=== PATIENT | male | born 1965 | race African-American/Black ===

== ENCOUNTER → 2016-09-15 | Outpatient (CLI) | payer OTHER ==
--- NOTE | 2016-09-15 10:34 | MR ---
EXAMINATION TYPE: MR lumbar spine wo con DATE OF EXAM: 09/15/2016 COMPARISON: 04/01/2010 HISTORY: Low Back Pain TECHNIQUE: T1 and T2 axial and sagittal images of the lumbar spine are submitted. Exam severely neri ited due to motion artifact. FINDINGS: There is no obvious abnormal signal seen within the visualized spinal cord or paraspinal so ft tissues. Exam significantly limited due to motion artifact. At L1-2 there is hypertrophic change of the facets but no disc herniation or canal stenosis. No maria teresa inal encroachment. At L2-3 there is marked facet arthropathy. No disc herniation or canal stenosis. I'll circumferential disc bulging with mild foraminal encroachment bilaterally. At L3-4 there is disc desiccation. There is ligamentum flavum and facet arthropathy and circumferenti al disc bulging with diminutive spinal canal. Mild bilateral foraminal encroachment. No Canal stenosi s. At L4-5 there is hypertrophic change of the facets with broad-based central disc bulging but no canal stenosis. Mild bilateral foraminal encroachment. Vertebral body hemangioma of L4 noted. At L5-S1 there is marked facet arthropathy. No canal stenosis or herniation. Neural foramina patent IMPRESSION: 1. Multilevel degenerative disc disease with multilevel disc bulging which appears fairly stable from the previous exam. 2. Multilevel mild foraminal encroachment secondary to hypertrophic facet arthropathy appears fairly stable.
== END | disposition home or self-care (01) ==
LOC: RADMRIMAIN 09:38
PROVIDERS: ATTEND Physician Assistant Medical
DX: M51.26 Other intervertebral disc displacement, lumbar region (principal); M51.36 Other intervertebral disc degeneration, lumbar region; M46.86 Other specified inflammatory spondylopathies, lumbar region
CPT/HCPCS: 72148

== ENCOUNTER → 2018-01-08 | Outpatient (CLI) | payer OTHER ==
--- NOTE | 2018-01-08 13:28 | MR ---
EXAMINATION TYPE: MR lumbar spine wo con DATE OF EXAM: 01/08/2018 1:04 PM COMPARISON: 09/15/2016 HISTORY: Low back pain Multiplanar, MultiSpin echo imaging of the lumbar spine was performed. L1-L2: Normal disc appearance without desiccation. No herniation, protrusion or disc bulging. No ca nal stenosis is present. Foramina are patent bilaterally. L2-L3: Mild disc desiccation. Broad-based posterior disc bulge effaces the ventral thecal sac. There is constriction of the thecal sac compatible with mild central stenosis. Bilateral foramina are paten t. No evidence of herniation. L3-L4: Mild disc desiccation. Broad-based posterior disc bulge effaces the ventral thecal sac. There is constriction of the thecal sac compatible with mild central stenosis. Bilateral foramina are paten t. No evidence of herniation. L4-L5: Mild disc desiccation. Broad-based posterior disc bulge effaces the ventral thecal sac. There is constriction of the thecal sac compatible with mild central stenosis. Bilateral foramina are paten t. Small right paracentral disc protrusion is difficult to exclude. Suspect right lateral recess sten osis. Mild right-sided foraminal encroachment. L5-S1: Normal disc appearance without desiccation. No herniation, protrusion or disc bulging. No ca nal stenosis is present. Foramina are patent bilaterally. Lumbar segments are intact. No paraspinal masses are identified. Conus medullaris has a normal appe arance. IMPRESSION: 1. Degenerative disc disease as discussed. 2. Mild central stenosis at L2-3 and L3-4. 3. Right paracentral disc protrusion suspected at L4-5 with right lateral recess stenosis and right f oraminal encroachment.
== END | disposition home or self-care (01) ==
LOC: RADMRIMAIN 12:28
PROVIDERS: ATTEND Psychiatry & Neurology Neurology
DX: M48.061 Spinal stenosis, lumbar region without neurogenic claudication (principal); M51.36 Other intervertebral disc degeneration, lumbar region
CPT/HCPCS: 72148

== ENCOUNTER 2018-12-01 07:30 | Day surgery (SDC) | payer OTHER ==
[2018-11-30 09:32] VITALS: BMI 44.6
[~2018-12-01 07:30] MED LIST: LACTATED RINGERS 1,000 ML IV SCH
[2018-12-01 07:42] VITALS: RESP 18; TEMP 97.9
[2018-12-01] MEDS ORDERED: LACTATED RINGERS 1,000 ML IV ONE ×3 (07:45)
[2018-12-01] MEDS ORDERED: MIDAZOLAM 2 MG/2 ML VIAL ONE (07:57)
[2018-12-01] MEDS ORDERED: PROPOFOL 10 MG/ML 20 ML VIAL IV ONE (07:57)
[2018-12-01] MEDS ORDERED: fentaNYL (PF) 50 MCG/ML 2 ML AMP ONE (07:57)
[2018-12-01] MEDS ORDERED: LIDOCAINE 1% INJ 10MG/ML (20 ML MDV) ONE (07:57)
--- NOTE | 2018-12-01 08:42 | P.PCN ---
Date of Procedure: 12/01/18 Procedure(s) Performed: Brief history: Patient is a pleasant 52-year-old pleasant -Citizen Of [place] male scheduled for an elective upper endoscopy as well as colonoscopy as a part of evaluation of abdominal pain, intermittent nausea vomiting and screening for colorectal neoplasia. Procedure performed: Esophagogastroduodenoscopy with biopsy Colonoscopy with biopsy Preoperative diagnosis: Abdominal pain/intermittent nausea vomiting Screening for colon cancer Anesthesia: MAC Procedure: After informed consent was obtained from the patient was brought into the endoscopy unit and IV sedation was administered by anesthesia under continuous monitoring. Initially upper endoscopy was done. The Olympus GF 160 video endoscope was inserted inserted into the mouth and esophagus intubated without any difficulty and was gradually advanced into the stomach and duodenum and carefully examined. The bulb and second part of the duodenum appeared normal. The scope was then withdrawn into the stomach adequately insufflated with air and upon careful examination the antrum had mild gastritis and biopsies were done from this area. The body, cardia and fundus appeared normal. The scope was then withdrawn into the esophagus. The GE junction was located at 40 cm to the incisors. there was small sliding-type well hernia noted. The GE junction appeared regular with no erythema erosions or ulcerations. Rest of the esophagus appeared normal. Patient tolerated the procedure well. At this time the patient continued to remain sedation. Initial digital rectal examination was normal. Olympus CF 160 video colonoscope was then inserted into the rectum and gradually advanced to the cecum without any difficulty. Careful examination was performed as the scope was gradually being withdrawn. The prep was excellent. The cecum, ascending colon, transverse colon, descending colon, sigmoid colon and rectum appeared normal. There was a 5 mm sessile polyp noted in the sigmoid colon that was removed by cold biopsy. Retroflexion was performed in the rectum and no lesions were noted. Patient tolerated the procedure well. Impression: 1. Upper endoscopy revealed mild antral gastritis and small hiatal hernia 2. Colonoscopy revealed 5 mm; polyp status post removal by cold biopsy Recommendations: Findings of this examination were discussed with the patient as well as her family. She was advised to follow with the biopsy results. If the biopsy shows an adenoma, she can have a repeat colonoscopy in 5 years.
[2018-12-01 08:43] VITALS: BP 112/76; PULSE 70
== END 2018-12-01 09:30 | disposition home or self-care (01) ==
LOC: ORWHC2ENDO 07:30
PROVIDERS: ATTEND Internal Medicine Gastroenterology
DX: K29.50 Unspecified chronic gastritis without bleeding (principal); K63.5 Polyp of colon; K44.9 Diaphragmatic hernia without obstruction or gangrene; Z88.6 Allergy status to analgesic agent; G47.33 Obstructive sleep apnea (adult) (pediatric); F43.10 Post-traumatic stress disorder, unspecified; K21.9 Gastro-esophageal reflux disease without esophagitis; K58.9 Irritable bowel syndrome, unspecified; Z79.891 Long term (current) use of opiate analgesic; Z79.899 Other long term (current) drug therapy
CPT/HCPCS: 88305; 45380; 43239; J2250; J2001; J3010; J2704

== ENCOUNTER → 2020-06-27 | Outpatient (CLI) | payer OTHER ==
--- NOTE | 2020-06-28 02:41 | MR ---
EXAMINATION TYPE: MR lumbar spine wo con DATE OF EXAM: 06/27/2020 COMPARISON: 01/08/2018 HISTORY: Chronic LBP, BLE radiculopathy Multiplanar multiecho imaging of the lumbar spine was performed without contrast. FINDINGS: Lumbar vertebra have normal alignment. There is mild narrowing of the disc spaces. There is no compre ssion fracture. I see no focal bone destruction. There is mild posterior concentric disc bulging at L 3-4 and L4-5. The sacroiliac joints are intact. There is no paraspinal mass. There is elevation of the posterior longitudinal ligament posterior to the L4 vertebral body consiste nt with extruded sequestered disc herniation probably from the L4-5 disc. There is resultant narrowin g of the spinal canal. There is also extruded disc herniation from L2-3 disc extending inferiorly and elevating the posterior longitudinal ligament at the L3 level. There is a mild relative spinal steno sis at the L3-4 L4-5 levels. The neural foramina are fairly well-maintained. IMPRESSION: Posterior disc bulging at L3-4 and L4-5. Sequestered disc herniation posterior to the L4 vertebral rodríguez dy which is increased slightly in size compared to old exam. Sequestered disc herniation at L2-3 also increased in size compared to old exam. There is a mild relative spinal stenosis at L3-4 L4-5.
== END | disposition home or self-care (01) ==
LOC: RADMRIMAIN 17:06
PROVIDERS: ATTEND Physician Assistant Medical
DX: M48.061 Spinal stenosis, lumbar region without neurogenic claudication (principal); M51.26 Other intervertebral disc displacement, lumbar region; Z88.5 Allergy status to narcotic agent; Z88.6 Allergy status to analgesic agent
CPT/HCPCS: 72148

== ENCOUNTER → 2021-04-12 | Outpatient (CLI) | payer OTHER ==
--- NOTE | 2021-04-12 10:22 | US ---
EXAMINATION TYPE: US liver DATE OF EXAM: 04/12/2021 COMPARISON: NONE CLINICAL HISTORY: R94.5 Abnormal results of liver function studies. Abnormal LFTs EXAM MEASUREMENTS: Liver Length: 16.1 cm Gallbladder Wall: 0.17 cm CBD: 0.57 cm Right Kidney: 11.7 x 4.9 x 5.5 cm Pancreas: Obscured by bowel gas Liver: Increased echogenicity; anechoic focus left lobe 2.3 x 1.6 x 1.6 cm; possible focal fatty spa ring adjacent to the gallbladder. Gallbladder: Echogenic focus seen Evidence for sonographic Chand's sign: No CBD: wnl Right Kidney: No hydronephrosis or masses seen Difficult exam due to patient body habitus IMPRESSION: 1. Simple appearing Hepatic cyst 2. Cholelithiasis.
== END | disposition home or self-care (01) ==
LOC: RADUSWWP 09:38
PROVIDERS: ATTEND Family Medicine
DX: K76.89 Other specified diseases of liver (principal); K80.20 Calculus of gallbladder without cholecystitis without obstruction
CPT/HCPCS: 76705